=== PATIENT | male | born 1980 | race Caucasian/White ===

== ENCOUNTER → 2017-04-16 | Outpatient (CLI) | payer OTHER ==
[~2017-04-16] MED LIST: ACET65TA; No Historical Meds; VICO5TAB
[2017-04-16 13:15] LABS: PERCENT SATURATION 23.7 % (19.7-50.0)
== END ==
LOC: M WUC 11:19
PROVIDERS: ATTEND Psychiatry & Neurology Neurology
DX: E61.1 Iron deficiency (principal)

== ENCOUNTER → 2017-11-14 | Outpatient (CLI) | payer OTHER ==
[2017-11-14 12:48] LABS: COMPLEMENT C3 121 MG/DL (90-180); COMPLEMENT C4 24.6 MG/DL (10-40); IMMUNOGLOBULIN G 923 MG/DL (681-1648)
[2017-11-14 12:49] LABS: IMMUNOGLOBULIN E 14.9 IU/ML (<100)
== END ==
LOC: M WUC 09:50
DX: H10.45 Other chronic allergic conjunctivitis (principal); J32.0 Chronic maxillary sinusitis; J45.990 Exercise induced bronchospasm
CPT/HCPCS: 82785

== ENCOUNTER 2019-03-26 02:46 | Emergency (ER) | payer OTHER ==
[~2019-03-26] VITALS: Ht 177.8 cm; Wt 105.4 kg
[2019-03-26] MEDS ORDERED: ONDANSETRON 4MG/2ML VIAL (J2405) IV ONE (03:00)
[2019-03-26] MEDS ORDERED: NS 1,000 ML IV ONE (03:00)
[2019-03-26] MEDS ORDERED: SIMV20TA2 (03:10)
[2019-03-26] MEDS ORDERED: LEVOTAB10 (03:10)
[2019-03-26] MEDS ORDERED: FLUTISP (03:10)
[2019-03-26] MEDS ORDERED: LISI10TA4 (03:10)
[2019-03-26] MEDS ORDERED: ALBU8.5H (03:10)
[2019-03-26] MEDS ORDERED: GABA600T4 (03:10)
[2019-03-26] MEDS ORDERED: TOPI25TA10 (03:10)
[2019-03-26 03:12] LABS: BASO # 0.1 10^3/uL (0.0-0.2); BASO % 0.5 % (0.0-1.0); EOS # 0.3 10^3/uL (0.0-0.50); EOS % 2.6 % (0.0-3.0); HEMATOCRIT 48.6 % (42.0-52.0); HEMOGLOBIN 16.5 g/dl (13.5-17.5); LYMPH # 1.8 10^3/uL (1.5-4.5); LYMPH % 18.4 % (24.0-44.0); MEAN CORPUSCULAR HEMOGLOBIN 30.1 pg (27.0-33.0); MEAN CORPUSCULAR VOLUME 88.5 fl (80.0-96.0); MONO # 0.5 10^3/uL (0.0-0.8); MONO % 5.3 % (0.0-5.0); NEUTROPHILS # 6.9 10^3/uL (1.8-7.7); NEUTROPHILS % 72.8 % (36.0-66.0); PLATELET COUNT, AUTOMATED 221 10^3/uL (150-450); RED BLOOD COUNT 5.49 10^6/uL (4.30-6.10); WHITE BLOOD COUNT 9.5 10^3/uL (4.0-10.0)
[2019-03-26 03:22] LABS: INR 1.03; PROTHROMBIN TIME 13.2 SECONDS (11.8-14.0)
[2019-03-26 04:06] LABS: ALT/SGPT 72 U/L (12-78); BILIRUBIN,DIRECT 0.1 MG/DL (0.0-0.2); BILIRUBIN,TOTAL 0.5 MG/DL (0.2-1.0); BLOOD UREA NITROGEN 17 MG/DL (7-18); CALCIUM LEVEL 8.6 MG/DL (8.5-10.1); CARBON DIOXIDE LEVEL 27 MEQ/L (21-32); CHLORIDE LEVEL 106 MEQ/L (98-107); CK-MB VALUE MASS < 1.0 NG/ML (<3.6); CPK CREATINE PHOSPHOKINASE 144 U/L (39-308); CREATININE FOR GFR 1.23 MG/DL (0.70-1.30); ETHYL ALCOHOL (ETHANOL) < 0.003 % (0.000-0.010); GLOMERULAR FILTRATION RATE > 60.0 (>60); GLUCOSE, FASTING 118 MG/DL (70-100); LIPASE 178 U/L (73-393); MB/CK RELATIVE INDEX 0.69 (< OR =4); POTASSIUM SERUM 4.1 MEQ/L (3.5-5.1); SODIUM LEVEL 141 MEQ/L (136-145); TOTAL PROTEIN 7.6 GM/DL (6.4-8.2); TROPONIN I < 0.02 NG/ML (< 0.10)
--- NOTE | 2019-03-26 04:38 | REPVR ---
EXAM: CT Head Without Contrast EXAM DATE/TIME: 03/26/2019 2:57 AM CLINICAL HISTORY: 38 years old, male; Injury or trauma; Fall; Initial encounter; Concussion / head injury; Additional info: Head injury, AMS TECHNIQUE: Imaging protocol: Computed tomography images of the head without contrast. Radiation optimization: All CT scans at this facility use at least one of these dose optimization techniques: automated exposure control; mA and/or kV adjustment per patient size (includes targeted exams where dose is matched to clinical indication); or iterative reconstruction. COMPARISON: No relevant prior studies available. FINDINGS: Brain: Normal. No hemorrhage. Unremarkable white matter. No mass effect. Ventricles: Normal. No ventriculomegaly. Bones/joints: Unremarkable. No acute fracture. Sinuses: Left maxillary, sphenoid, ethmoid and inferior frontal sinus mucosal thickening. Mastoid air cells: Visualized mastoid air cells are well aerated. No mastoid effusion. Soft tissues: Unremarkable. IMPRESSION: 1. Left maxillary, sphenoid, ethmoid and inferior frontal sinus disease. 2. Otherwise negative noncontrast head CT. Electronically signed by: Antoine Santiago On 03/26/2019 04:37:48 AM
--- NOTE | 2019-03-26 04:42 | REPVR ---
EXAM: CT Cervical Spine Without Contrast EXAM DATE/TIME: 03/26/2019 2:57 AM CLINICAL HISTORY: 38 years old, male; Injury or trauma; Fall; Initial encounter; Concussion /head injury; Additional info: Head injury, AMS TECHNIQUE: Imaging protocol: Computed tomography images of the cervical spine without contrast. Coronal and sagittal reformatted images were created and reviewed. Radiation optimization: All CT scans at this facility use at least one of these dose optimization techniques: automated exposure control; mA and/or kV adjustment per patient size (includes targeted exams where dose is matched to clinical indication); or iterative reconstruction. COMPARISON: No relevant prior studies available. FINDINGS: Vertebrae: No acute fracture. Normal alignment. Discs/Spinal canal/Neural foramina: Slight interspace narrowing at C5-C6 with degenerative changes of the right uncovertebral joints and mild right neural foraminal stenosis. Otherwise, no spinal or foraminal stenosis. Soft tissues: Unremarkable. Mastoid air cells: Opacification of a few left mastoid air cells at the tip. Lungs: Lung apices are grossly normal. IMPRESSION: 1. Early degenerative disc change at C5-C6 with degenerative changes of the right uncovertebral joints and mild right neural foraminal stenosis. Otherwise, no spinal or foraminal stenosis. 2. Otherwise negative CT cervical spine. No acute fracture or subluxation. Electronically signed by: Antoine Santiago On 03/26/2019 04:41:48 AM
[2019-03-26] MEDS ORDERED: ISOVUE-370 76% 100ML VIAL (Q9967) As Ordered ONE (05:22)
[2019-03-26 05:32] LABS: AMPHETAMINES LEVEL URINE NEGATIVE (NEGATIVE); BARBITURATES URINE NEGATIVE (NEGATIVE); BENZODIAZEPINES URINE NEGATIVE (NEGATIVE); CANNABINOIDS URINE NEGATIVE (NEGATIVE); COCAINE METABOLITE URINE NEGATIVE (NEGATIVE); METHADONE URINE NEGATIVE (NEGATIVE); OPIATES URINE NEGATIVE (NEGATIVE); PHENCYCLIDINE URINE NEGATIVE (NEGATIVE)
--- NOTE | 2019-03-26 05:56 | REPVR ---
EXAM: CT Angiography Chest With Contrast EXAM DATE/TIME: 03/26/2019 5:18 AM CLINICAL HISTORY: 38 years old, male; Chest pain; Type not specified; Additional info: AMS, abd pain, n/v/d TECHNIQUE: Imaging protocol: Axial computed tomographic angiography images of the chest with intravenous contrast using CT angiography protocol. Coronal and sagittal reformatted images were created and reviewed. 3D rendering: MIP reconstructed images were created and reviewed. Radiation optimization: All CT scans at this facility use at least one of these dose optimization techniques: automated exposure control; mA and/or kV adjustment per patient size (includes targeted exams where dose is matched to clinical indication); or iterative reconstruction. Contrast material: ISO;Contrast volume: 100 ml;Contrast route: AC; COMPARISON: CR PORTABLE CHEST X-RAY 03/26/2019 3:06 AM FINDINGS: Pulmonary arteries: The main pulmonary artery measures 25. No pulmonary embolism is identified. Aorta: The ascending thoracic aorta measures 24 mm. No gross or obvious aortic dissection is identified distal to the mid arch. Artifact and image degradation precludes detailed evaluation of the ascending thoracic aorta. Lungs: Minimal bilateral lower lobe fibro-atelectatic change. Pleural space: Unremarkable. No pneumothorax. No pleural effusion. Heart: Unremarkable. No cardiomegaly. No pericardial effusion. Lymph nodes: Nodule adjacent to the right minor fissure measuring 5 x 7 mm and is likely a lymph node. Borderline right hilar nodes. Bones/joints: Hemangioma in the T9 segment. Soft tissues: Unremarkable. IMPRESSION: 1. Nodule adjacent to the right minor fissure measuring 5 x 7 mm, likely a lymph node. For patients at low risk (minimal or absent history of smoking and of other known risk factors), recommend CT at 6-12 months, then consider CT at 18-24 months. For patients at high risk (history of smoking or of other known risk factors), recommend CT at 6-12 months, then CT at 18-24 months. (Riley et al., Fleischner Society, 2017). 2. Minimal bilateral lower lobe fibro-atelectatic change. 3. Borderline right hilar nodes which are nonspecific. 4. Otherwise negative CTA chest. No pulmonary embolism is identified. Electronically signed by: Antoine Santiago On 03/26/2019 05:55:45 AM
--- NOTE | 2019-03-26 06:00 | REPVR ---
EXAM: CT Abdomen and Pelvis With Contrast EXAM DATE/TIME: 03/26/2019 5:18 AM CLINICAL HISTORY: 38 years old, male; Abdominal pain; Generalized; Additional info: AMS, abd pain, n/v/d TECHNIQUE: Imaging protocol: Axial computed tomography images of the abdomen and pelvis with intravenous contrast. Coronal and sagittal reformatted images were created and reviewed. Radiation optimization: All CT scans at this facility use at least one of these dose optimization techniques: automated exposure control; mA and/or kV adjustment per patient size (includes targeted exams where dose is matched to clinical indication); or iterative reconstruction. Contrast material: ISO;Contrast volume: 100 ml;Contrast route: AC; COMPARISON: No relevant prior studies available. FINDINGS: Lungs: Bibasilar interstitial prominence with minimal bilateral lower lobe fibro-atelectatic change. Liver: The liver attenuation is 60 Hounsfield units and the spleen is 128 Hounsfield units. Gallbladder and bile ducts: Normal. No calcified stones. No ductal dilation. Pancreas: Normal. No ductal dilation. Spleen: Normal. No splenomegaly. Adrenals: Normal. No mass. Kidneys and ureters: Normal. No hydronephrosis. Stomach and bowel: Sutures at the cecal tip consistent with prior appendectomy. Appendix: No evidence of appendicitis. Intraperitoneal space: Normal. No free air. No significant fluid collection. Vasculature: The abdominal aorta is of normal size with no aneurysm or dissection. Lymph nodes: Normal. No enlarged lymph nodes. Bladder: Unremarkable as visualized. Reproductive: Unremarkable as visualized. Bones/joints: No acute fracture. No dislocation. Soft tissues: Unremarkable. IMPRESSION: 1. Bibasilar interstitial prominence with minimal bilateral lower lobe fibro-atelectatic change. 2. Fatty infiltration of the liver. 3. Status post appendectomy. 4. Otherwise negative CT abdomen/pelvis. Electronically signed by: Antoine Santiago On 03/26/2019 05:59:47 AM
--- NOTE | 2019-03-26 06:33 | ECGEPIP ---
[facility], [place] - ED Test Date: 2019-03-26 Pat Name: ANGELI MAN Department: Room: - Gender: Male [employer]: GALILEO : 1980 Requested By: KYLE Ricks Order Number: [id number] Reading MD: Rob Obando Measurements Intervals [place] Rate: 77 P: 25 [place]: 180 QRS: 25 QRSD: 91 T: 13 QT: 381 QTc: 432 Interpretive Statements SINUS RHYTHM POSSIBLE LEFT ATRIAL ENLARGEMENT POSSIBLE PRIOR INFERIOR INFARCT INCOMPLETE RIGHT BUNDLE BRANCH BLOCK NO PRIORS FOR COMPARISON Electronically Signed on 03-26-2019 6:32:57 EDT by Rob Obando
[2019-03-26] MEDS ORDERED: ONDA4TAB6 PO (06:50)
--- NOTE | 2019-03-26 06:51 | REP ---
Clinical: Chest pain. Technique: Portable chest x-ray. Comparison: 06/16/2013. Findings: Bibasilar atelectasis/infiltrate (left greater than right) and possible small left pleural reaction. Cardiac silhouette normal. No pneumothorax. Skeletal structures intact. Impression: Bibasilar atelectasis/infiltrates and possible small left pleural reaction. Electronically Signed by Larry Sommer MD 03/26/2019 06:43 A
[2019-03-26 07:15] VITALS: BP 109/59
--- NOTE | 2019-03-26 19:53 | ED PDOC ---
Post-Departure Follow-Up dr karthik pena faxed formal report of cxr for fu hemanthg Sage Marley MD Mar 26, 2019 19:53
== END 2019-03-26 08:13 | disposition home or self-care (01) ==
LOC: M ED 02:46
DX: R55 Syncope and collapse (principal); R91.8 Other nonspecific abnormal finding of lung field; I10 Essential (primary) hypertension; Z79.899 Other long term (current) drug therapy
CPT/HCPCS: 36600; 70450; 71045; 71275; 72125; 74177; 80048; 80076; 80307; 82550; 82553; 82803; 83605; 83690; 85025; 85610; 93005; 93041; 96361; 96374; 99285; G0480; J2405; Q9967